=== PATIENT | female | born 1990 | race Caucasian/White ===

== ENCOUNTER 2016-07-04 23:44 | Emergency (ER) | payer BC, OTHER ==
[2016-07-04 23:53] VITALS: BP 146/78; PULSE 87; TEMP 97.8; BMI 29.2
[2016-07-05] MEDS ORDERED: ACETAMINOPHEN 500 MG TABLET (FP) PO ONE (01:05)
--- NOTE | 2016-07-05 01:12 | PDOC ---
History of Present Illness - General Chief Complaint: Chest Pain Stated Complaint: LT SIDE NUMB/CHEST PAIN Time Seen by Provider: 07/05/16 00:12 History Source: Patient Exam Limitations: No Limitations - History of Present Illness Initial Comments: 07/05/16 01:06 Patient is a 26 -year-old female with history of C-sectioncomplaining of chest pain which started 1 hour prior to presentation. States she was sitting down when she started having sharp 7/10 chest pain. She states that for about a week she has been having numbness tor left arm and her left face, but did not start having chest pain on today associated with lightheadedness. There are no alleviating or aggravating factors. Pain with deep breathing, denies N/V/SOB/ diaphoresis. No recent travel, no leg swelling, no OCP. neg FamHX PMD: Dr. Dos Santos PMHX: as above PSOCHX: (-) cig, (-) drug, (-) etoh ALL: NKDA GENERAL/CONSTITUTIONAL: [No fever or chills. No weakness. No weight change.] HEAD, EYES, EARS, NOSE AND THROAT: [No change in vision. No ear pain or discharge. No sore throat.] CARDIOVASCULAR: (+) chest pain or shortness of breath.] RESPIRATORY: [No cough, wheezing, or hemoptysis.] GASTROINTESTINAL: [No nausea, vomiting, diarrhea or constipation. No rectal bleeding.] GENITOURINARY: [No dysuria, frequency, or change in urination.] MUSCULOSKELETAL: [No joint or muscle swelling or pain. No neck or back pain.] SKIN AND BREASTS: [No rash or easy bruising.] NEUROLOGIC: [No headache, vertigo, loss of consciousness, or loss of sensation.] PSYCHIATRIC: [No depression or anxiety.] ENDOCRINE: [No increased thirst. No abnormal weight change.] HEMATOLOGIC/LYMPHATIC: [No anemia, easy bleeding, or history of blood clots.] ALLERGIC/IMMUNOLOGIC: [No hives or skin allergy. No latex allergy.] GENERAL: [The patient is awake, alert, and fully oriented, in no acute distress. ] HEAD: [Normal with no signs of trauma.] EYES: [Pupils equal, round and reactive to light, extraocular movements intact, sclera anicteric, conjunctiva clear.] ENT: [Ears normal, nares patent, oropharynx clear without exudates. Moist mucous membranes.] NECK: [Normal range of motion, supple without lymphadenopathy, JVD, or masses.] LUNGS: [Breath sounds equal, clear to auscultation bilaterally. No wheezes, and no crackles.] HEART: [Regular rate and rhythm, normal S1 and S2 without murmur, rub.] ABDOMEN: [Soft, nontender, normoactive bowel sounds. No guarding, no rebound. No masses.] EXTREMITIES: [Normal range of motion, no edema. No clubbing or cyanosis. No cords, erythema, or tenderness.] NEUROLOGICAL: [Cranial nerves II through XII grossly intact. Normal speech, normal gait, cerebella function intact, ] PSYCH: [Normal mood, normal affect.] SKIN: [Warm, Dry, normal turgor, no rashes or lesions noted.] Past History - Past Medical History Allergies/Adverse Reactions: Allergies Allergy/AdvReac Type Severity Reaction Status Date / Time No Known Allergies Allergy Verified 04/07/16 11:53 Home Medications: Ambulatory Orders Bacitracin Ophthalmic Oint - 1 applic OD Q4H #1 tube 07/05/16 Asthma: No Cancer: No Cardiac Disorders: No Diabetes: No HTN: No Suicide Attempt (Hx): No Seizures: No Thyroid Disease: No - Immunization History Td Vaccination: Yes Immunization Up to Date: Yes - Psycho/Social/Smoking Cessation Hx Anxiety: No Suicidal Ideation: No Smoking Status: No Smoking History: Never smoked Years of Tobacco Use: 0 Have you smoked in the past 12 months: No Number of Cigarettes Smoked Daily: 0 Cigars Per Day: 0 Information on smoking cessation initiated: No Hx Alcohol Use: No Drug/Substance Use Hx: No Substance Use Type: None Hx Substance Use Treatment: No *Physical Exam - Vital Signs Last Vital Signs Temp Pulse Resp BP Pulse Ox 97.8 F 87 14 146/78 100 07/04/16 23:52 07/04/16 23:52 07/04/16 23:52 07/04/16 23:52 07/04/16 23:52 ED Treatment Course - LABORATORY CBC & Chemistry Diagram: 07/05/16 01:05 07/05/16 01:05 - ADDITIONAL ORDERS Additional order review: Laboratory Results 07/05/16 07/05/16 01:05 01:05 D-Dimer 243 H Sodium 137 Potassium 3.9 Chloride 100 Carbon Dioxide 29 Anion Gap 8 BUN 17 D Creatinine 0.7 Random Glucose 83 Calcium 9.6 Creatine Kinase 71 Troponin I < 0.02 Beta HCG, Quant < 1.0 07/05/16 01:05 RBC 5.44 H MCV 67.3 L MCHC 30.6 L RDW 19.0 H MPV 9.5 - RADIOLOGY Radiology Studies Ordered: Category Date Time Status CHEST CTA [CT] Stat CT Scan 07/05/16 03:11 Taken - Medications Given in the ED: ED Medications Discontinued Medications Generic Name Dose Route Start Last Admin Trade Name Freq PRN Reason Stop Dose Admin Acetaminophen 1,000 mg 07/05/16 01:05 07/05/16 02:21 Tylenol - PO 07/05/16 01:06 1,000 mg ONCE ONE Administration Medical Decision Making - Medical Decision Making 07/05/16 01:12 Patient is a 26 -year-old female with history of C-sectioncomplaining of chest pain which started 1 hour prior to presentation.A fam hx neg, no like to be cardiac PERC neg but since pain is pleuritic will get d-dimer. labs are normal except for d-dimer elevate will get CTA chest tylenol 975mg po for pain 07/05/16 06:09 CTA neg for PE, or any acute chest pathology. I discussed the physical exam findings, ancillary test results and final diagnoses with the patient. I answered all of the patient's questions. The patient was satisfied with the care received and felt comfortable with the discharge plan and treatment plan. The Patient agrees to follow up with the primary care physician within 24-72 hours. *DC/Admit/Observation/Transfer Diagnosis at time of Disposition: Chest pain - Discharge Dispostion Disposition: HOME Condition at time of disposition: Stable - Prescriptions Prescriptions: Bacitracin Ophthalmic Oint - 1 applic OD Q4H #1 tube - Patient Instructions Printed Discharge Instructions: DI for Chest Pain Additional Instructions: Your Discharge Instructions: You must call primary care physician within 24 hours to arrange follow-up. Return to the Emergency Department with any new, persistent or worsening symptoms, for fever, chills, SOB, dizziness or any other concerning changes that may occur. - Post Discharge Activity Work/School Note: Back to Work
[2016-07-05 01:59] LABS: MCH 20.6 pg (25.7-33.7); MCHC 30.6 g/dl (32.0-36.0); MEAN CELL VOLUME 67.3 fl (80-96); MEAN PLT VOLUME 9.5 fl (7.5-11.1); PLATELET COUNT 327 K/MM3 (134-434); WHITE BLOOD COUNT 17.3 K/mm3 (4.0-10.0)
[2016-07-05] MEDS ORDERED: ACETAMINOPHEN 325 MG TABLET (FP) ONE (02:18)
[2016-07-05 02:50] LABS: ANION GAP 8 (8-16); CALCIUM 9.6 mg/dL (8.5-10.1); CO2 29 mmol/L (21-32); CREATININE 0.7 mg/dL (0.55-1.02); GLUCOSE,RANDOM 83 mg/dL (74-106)
[2016-07-05 02:53] LABS: TROPONIN I < 0.02 ng/ml (0.00-0.05)
[2016-07-05 04:11] LABS: ANISOCYTOSIS 2+; HYPOCHROMIA 2+; MICROCYTOSIS 1+; PLATELET ESTIMATE ADEQUATE (NORMAL)
--- NOTE | 2016-07-06 12:19 | EKG ---
Test Reason : Blood Pressure : / mmHG Vent. Rate : 086 BPM Atrial Rate : 086 BPM P-R Int : 134 ms QRS Dur : 084 ms QT Int : 380 ms P-R-T Axes : 061 073 054 degrees QTc Int : 454 ms POOR DATA QUALITY, INTERPRETATION MAY BE ADVERSELY AFFECTED NORMAL SINUS RHYTHM NORMAL ECG WHEN COMPARED WITH ECG OF 31-JAN-2016 04:55, NO SIGNIFICANT CHANGE WAS FOUND Confirmed by THOM LAZARO MD ([id number]) on 07/06/2016 12:19:15 PM Referred By: Confirmed By:THOM LAZARO MD
== END 2016-07-05 06:32 | disposition home or self-care (01) ==
LOC: JER 23:44
DX: R07.89 Other chest pain (principal)
CPT/HCPCS: 36415; 71275-TC; 80048; 82550; 84484; 84702; 85027; 85379; 93005; 93010; 99284-25

== ENCOUNTER → 2016-10-10 | Emergency (ER) | payer BC, OTHER ==
[~2016-10-10] MED LIST: CEFTRIAXONE 1 GM in DEXTROSE 5%-WATER - 50 ML IVPB ONE; CEFTRIAXONE 50 ML ONE; KETOROLAC TROMETHAMINE 30 MG/1 ML VIAL IVPUSH ONE; KETOROLAC TROMETHAMINE 30 MG/1 ML VIAL ONE; SODIUM CHLORIDE 1,000 ML IV STA
[2016-10-10 19:25] VITALS: TEMP 98.1; BMI 64.4
--- NOTE | 2016-10-10 19:34 | PDOC ---
History of Present Illness - General History Source: Patient, Family, Old Records Exam Limitations: No Limitations - History of Present Illness Initial Comments: 10/10/16 20:22 The patient is a 26 year old female, with a significant past medical history of positive D-dimers, who presents to the emergency department after being sent from urgent care with shortness of breath, left sided flank pain, left sided chest pain and positive D-dimer onset yesterday. She describes her left flank pain and chest pain as ranging from mild to moderate, without radiation. She states that taking a deep breath and certain movements exacerbates her pain. The patient was in the ED on 06/2016 for chest pain and had a positive D-dimer, a CTA performed that was negative for PE. The patient also had a CTA in 2011 when her D-dimer was also positive, which was negative for PE. She reports that she is also experiencing loss of appetite and a low grade fever (100.1). She states that over the past 7 months she has lost over 25 pounds. The patient denies headache and dizziness. Denies chills, nausea, vomit, diarrhea and constipation. Denies dysuria, frequency, urgency and hematuria. LMP: 2 weeks ago Allergies: None Past surgical history: C-Sections (x2) Social history: Occasional alcohol use. No tobacco or drug use reported <Orlin Ames - Last Filed: 10/10/16 20:22> <Arslan Vance - Last Filed: 10/10/16 23:11> - General Chief Complaint: Shortness of Breath Stated Complaint: Shortness of breath Time Seen by Provider: 10/10/16 19:30 Past History <Orlin Ames - Last Filed: 10/10/16 20:22> - Past Medical History Asthma: No Cancer: No Cardiac Disorders: No Diabetes: No HTN: No Suicide Attempt (Hx): No Seizures: No Thyroid Disease: No - Immunization History Td Vaccination: Yes Immunization Up to Date: Yes - Psycho/Social/Smoking Cessation Hx Anxiety: No Suicidal Ideation: No Smoking Status: No Smoking History: Never smoked Years of Tobacco Use: 0 Have you smoked in the past 12 months: No Number of Cigarettes Smoked Daily: 0 Cigars Per Day: 0 Information on smoking cessation initiated: No Hx Alcohol Use: Yes (Occasionally) Drug/Substance Use Hx: No Substance Use Type: None Hx Substance Use Treatment: No <Arslan Vance - Last Filed: 10/10/16 23:11> - Past Medical History Allergies/Adverse Reactions: Allergies Allergy/AdvReac Type Severity Reaction Status Date / Time No Known Allergies Allergy Verified 10/10/16 19:25 Home Medications: Ambulatory Orders Sulfamethoxazole/Trimethoprim [Bactrim DS -] 1 tab PO BID #20 tablet 10/10/16 Tramadol HCl [Ultram] 50 mg PO BID PRN #10 tablet MDD 2 10/10/16 Review of Systems - Review of Systems Constitutional: Yes: Fever (100.1 yesterday), Unintentional Wgt. Loss (30 lbs over 6 months). No: Chills HEENTM: No: Recent change in vision, Nose Congestion, Throat Swelling Respiratory: Yes: See HPI. No: Cough, Shortness of Breath Cardiac (ROS): Yes: See HPI ABD/GI: No: Diarrhea, Vomiting : No: Dysuria, Frequency, Hematuria Musculoskeletal: Yes: Muscle Pain All Other Systems: Reviewed and Negative <Arslan Vance - Last Filed: 10/10/16 23:11> *Physical Exam - Vital Signs Last Vital Signs Temp Pulse Resp BP Pulse Ox 98.1 F 124 H 24 139/73 99 10/10/16 19:21 10/10/16 19:21 10/10/16 19:21 10/10/16 19:21 10/10/16 19:21 - Physical Exam Comments: 10/10/16 20:23 GENERAL: The patient is awake, alert, and fully oriented, in no acute distress. HEAD: Normal with no signs of trauma. EYES: Pupils equal, round and reactive to light, extraocular movements intact, sclera anicteric, conjunctiva clear with no pallor. ENT: Ears normal, nares patent, oropharynx clear without exudates. Moist mucous membranes. NECK: Normal range of motion, supple without lymphadenopathy, JVD, or masses. LUNGS: Breath sounds equal, clear to auscultation bilaterally. No wheeze/ crackles. HEART: Regular rate and rhythm, normal S1 and S2 without murmur or rub. ABDOMEN: (+) Slightly increase discomfort to palpation to the left flank. Soft/ nondistended. BS wnl. No guarding or rebound. No palpable masses. No hepatosplenomegaly. EXTREMITIES: Normal range of motion, no edema. No clubbing or cyanosis. No cords , erythema, or tenderness. NEUROLOGICAL: Cranial nerves II through XII grossly intact. Normal speech, normal gait. PSYCH: Normal mood, normal affect. SKIN: Warm, Dry, normal turgor, no rashes or lesions noted. <Orlin Ames - Last Filed: 10/10/16 20:22> - Vital Signs Last Vital Signs Temp Pulse Resp BP Pulse Ox 98.1 F 124 H 24 139/73 99 10/10/16 19:21 10/10/16 19:21 10/10/16 19:21 10/10/16 19:21 10/10/16 19:21 <Arslan Vance - Last Filed: 10/10/16 23:11> Heart Score/ECG Review #1 ECG reviewed & interpreted by me at: 19:35 General ECG Interpretation: Sinus Rhythm (tachy at 109), Normal Intervals (IRBBB , QTC 452), No acute ischemic changes Compared to previous ECG there are: No significant change (c/w 07/05/16) <Arslan Vance - Last Filed: 10/10/16 23:11> ED Treatment Course - LABORATORY CBC & Chemistry Diagram: 10/10/16 19:40 10/10/16 19:40 - ADDITIONAL ORDERS Additional order review: Laboratory Results 10/10/16 10/10/16 19:40 19:40 INR 1.21 H PTT (Actin FS) 31.9 Serum , Qual Negative 10/10/16 19:40 RBC 4.90 MCV 68.8 L MCHC 31.5 L RDW 18.1 H MPV 9.1 Neutrophils % 76.6 Lymphocytes % 15.1 Monocytes % 7.5 D Eosinophils % 0.3 Basophils % 0.5 <Orlin Ames - Last Filed: 10/10/16 20:22> - LABORATORY CBC & Chemistry Diagram: 10/10/16 19:40 10/10/16 19:40 <Arslan Vance - Last Filed: 10/10/16 23:11> Medical Decision Making - Medical Decision Making 10/10/16 20:27 A portion of this note was documented by scribe services under my direction. I have reviewed the details of the note, within reason, and agree with the documentation with the following case summary and management plan written by me. 26-year-old female with no significant past medical history presents for left flank/pleuritic discomfort since yesterday with tachycardia and positive d- dimer at urgent care. No PE risk factors, has been ruled out for PE with CAT scan in the past in the setting of positive d-dimer. Denies any symptoms of DVT. No recent infectious complaints, no recent travel. Family history of lupus, also someone with thyroid issues. Reports chronically elevated wbc but has not been able to see a freelance digital project manager. exam as noted, discomfort to L flank but no rash. lungs clear thyroid normal no signs of DVT +d-dimer in setting of acute onset L flank pain that is also pleuritic. noted tachycardia but this has been ongoing for about a year. has had similar presentation in the past and CT ruled out PE. ? whether her weight loss, intermittent tachycardia, ?leukocuytosis suggest an underlying metabolic/ endocrine derangement. overall well appearing without acute respiratory distress , low suspicion for cardiac or urine/renal source. labs including tsh and ldh, ua cta chest reassess 10/10/16 20:43 wbc 15.5 with normal diff (similar to past levels back to 2011), baseline anemia of 10.6, normal chem including trop (nl Na and K). En route to CTA chest. 10/10/16 22:16 CT without PE or pulmonary process. Notable filling defect in upper L renal pole suspicious for pyelonephritis. Ultrasound shows no stone or filling defect. UA with + nitrite. Will treat with ceftriaxone for pyelonephritis, Urine cx sent. Despite wbc is well appearing and afebrile without comorbities, so can d/c on abx with culture f/u and return criteria. 10/10/16 22:48 much improved, received abx and cx sent. tsh and ldh wnl. will d/c on abx, f/u with Dr. Dos Santos and endocrine, understands return criteria. HR improved, now 99. <Arslan Vance - Last Filed: 10/10/16 23:11> *DC/Admit/Observation/Transfer - Attestations Scribe Attestion: 10/10/16 20:22 Documentation prepared by Orlin Ames, acting as director medical affairs for Arslan Vance MD <Orlin Ames - Last Filed: 10/10/16 20:22> <Arslan Vance - Last Filed: 10/10/16 23:11> Diagnosis at time of Disposition: Palpitations, Pleuritic chest pain, Pyelonephritis - Discharge Dispostion Disposition: HOME Condition at time of disposition: Improved - Prescriptions Prescriptions: Sulfamethoxazole/Trimethoprim [Bactrim DS -] 1 tab PO BID #20 tablet Tramadol HCl [Ultram] 50 mg PO BID PRN #10 tablet MDD 2 PRN Reason: Severe Pain - Referrals Referrals: Tobin Dos Santos MD [Primary Care Provider] - Geovanni Contreras MD [Staff Physician] - - Patient Instructions Printed Discharge Instructions: DI for Kidney Infection Additional Instructions: Activity as tolerated. Stay hydrated. Tylenol 1000 mg every 8 hours and/or ibuprofen 600 mg every 8 hours as needed for moderate pain, Tramadol as prescribed as needed for severe pain. A CAT scan of the chest showed no acute abnormalities. A urine test, ultrasound , and the CAT scan show an infection in the kidney. Take Bactrim as prescribed as an antibiotic. You should follow up with Dr. Dos Santos as soon as possible regarding today's emergency department visit. You should also consider seeing an radio operator ground regarding your weight loss. Also consider seeing a freelance digital project manager (Dr. Contreras) regarding your anemia and high white blood cells. Return to the emergency department for any new or concerning symptoms, particularly high fever/chills, difficulty urinating, difficulty breathing, intolerable pain.
[2016-10-10 19:46] LABS: BASOPHIL 0.5 % (0-2.0); EOSINOPHIL 0.3 % (0-4.5); MCH 21.6 pg (25.7-33.7); MCHC 31.5 g/dl (32.0-36.0); MEAN CELL VOLUME 68.8 fl (80-96); MEAN PLT VOLUME 9.1 fl (7.5-11.1); NEUTROPHILS 76.6 % (42.8-82.8); PLATELET COUNT 267 K/MM3 (134-434); RDW 18.1 % (11.6-15.6); WHITE BLOOD COUNT 15.5 K/mm3 (4.0-10.0)
[2016-10-10 19:57] LABS: INR 1.21 (0.82-1.09); PROTHROMBIN TIME (PATIENT) 13.4 SEC (9.98-11.88)
[2016-10-10 19:59] LABS: ACTIVATED PTT 31.9 SECONDS (26.9-34.4)
[2016-10-10 20:06] LABS: ANISOCYTOSIS 1+; HYPOCHROMIA FEW; MICROCYTOSIS 1+; PLATELET ESTIMATE ADEQUATE (NORMAL)
[2016-10-10 20:23] LABS: ALBUMIN 3.6 g/dl (3.4-5.0); ANION GAP 11 (8-16); BILIRUBIN,TOTAL 0.3 mg/dL (0.2-1.0); CALCIUM 8.4 mg/dL (8.5-10.1); CO2 26 mmol/L (21-32); CREATININE 0.7 mg/dL (0.55-1.02); GLUCOSE,RANDOM 95 mg/dL (74-106); SGOT/AST 13 U/L (15-37); SGPT/ALT 22 U/L (12-78); TOT PROT 7.7 g/dl (6.4-8.2)
[2016-10-10 20:26] LABS: ALK PHOS 108 U/L (45-117); TROPONIN I < 0.02 ng/ml (0.00-0.05)
[2016-10-10 21:49] LABS: URINE APPEARANCE CLEAR; URINE BILIRUBIN NEGATIVE (NEGATIVE); URINE COLOR LTYELLOW; URINE GLUCOSE (UA) NEGATIVE (NEGATIVE); URINE KETONE NEGATIVE (NEGATIVE); URINE LEUK ESTERASE NEGATIVE (NEGATIVE); URINE NITRITE POSITIVE (NEGATIVE); URINE PROTEIN NEGATIVE (NEGATIVE); URINE UROBILINOGEN NEGATIVE E.U./dl (0.2-1.0)
[2016-10-10 22:05] LABS: URINE BLOOD 2+ (NEGATIVE)
[2016-10-10 22:08] LABS: URINE BACTERIA RARE /hpf (NONE SEEN); URINE MUCUS RARE; URINE RBC 20 /hpf (0-3); URINE WBC 6 /hpf (3-5)
[2016-10-10 22:32] VITALS: BP 126/76; PULSE 100
[2016-10-10 22:42] LABS: THYROID STIMULATING HORMONE 0.52 uIU/ml (0.358-3.74)
--- NOTE | 2016-10-11 10:53 | EKG ---
Test Reason : Blood Pressure : / mmHG Vent. Rate : 109 BPM Atrial Rate : 109 BPM P-R Int : 126 ms QRS Dur : 096 ms QT Int : 336 ms P-R-T Axes : 079 083 037 degrees QTc Int : 452 ms SINUS TACHYCARDIA OTHERWISE NORMAL ECG WHEN COMPARED WITH ECG OF 05-JUL-2016 01:25, NO SIGNIFICANT CHANGE WAS FOUND Confirmed by MD TARYN, CONOR ([id number]) on 10/11/2016 10:53:21 AM Referred By: Confirmed By:CONOR CENTENO MD
== END | disposition home or self-care (01) ==
LOC: JER 19:13 → SUPCPDRO 19:13
PROC: 3E0337Z Introduction of Electrolytic and Water Balance Substance into Peripheral Vein, Percutaneous Approach (ICD-10-PCS; principal; 2016-10-10)
PROC: 3E03329 Introduction of Other Anti-infective into Peripheral Vein, Percutaneous Approach (ICD-10-PCS; 2016-10-10)
PROC: 3E0333Z Introduction of Anti-inflammatory into Peripheral Vein, Percutaneous Approach (ICD-10-PCS; 2016-10-10)
DX: N12 Tubulo-interstitial nephritis, not specified as acute or chronic (principal); R07.89 Other chest pain; R00.2 Palpitations
CPT/HCPCS: 36415; 71275-TC; 76775-TC; 80053; 81003; 81015; 82550; 83615; 84443; 84484; 84703; 85025; 85610; 85730; 86850; 86900; 86901; 87086; 87186; 93005; 93010; 99283-25

== ENCOUNTER 2016-10-26 18:26 | Emergency (ER) | payer BC, OTHER ==
--- NOTE | 2016-10-26 18:36 | PDOC ---
Rapid Medical Evaluation Chief Complaint: Chest Pain Time Seen by Provider: 10/26/16 18:33 Medical Evaluation: Allergies Allergy/AdvReac Type Severity Reaction Status Date / Time No Known Allergies Allergy Verified 10/10/16 19:25 10/26/16 18:35 I have performed a brief in-person evaluation of this patient. The patient presents with a chief complaint of:chest pain Pertinent physical exam findings:none I have ordered the following:ekg done in triage The patient will proceed to the ED for further evaluation.
[2016-10-26 18:37] VITALS: BP 140/81; PULSE 91; TEMP 97.6; BMI 29.2
[2016-10-26] MEDS ORDERED: KETOROLAC TROMETHAMINE 60 MG/2 ML VIAL IM ONE (20:24)
--- NOTE | 2016-10-26 20:25 | PDOC ---
History of Present Illness - General Chief Complaint: Chest Pain Stated Complaint: CHEST PAIN Time Seen by Provider: 10/26/16 18:33 - History of Present Illness Initial Comments: 10/26/16 20:24 CHIEF COMPLAINT: chest pain HISTORY OF PRESENT ILLNESS: 26 yo F with hx of elevated WBC, positive D-dimers, and elevated HR presents to fast track with chest pain that started today. Patient reports that the pain is reproducible on palpation and worsens when she breaths. Patient was seen 2 weeks prior in this ED for the same; CTA was performed and she was negative for PEs. No recent travel or sick contacts. PAST MEDICAL HISTORY: Denies past medical history FAMILY HISTORY: Denies SOCIAL HISTORY: Denies tobacco, alcohol, illicit drug use. SURGICAL HISTORY: Denies ALLERGIES: No known drug allergies REVIEW OF SYSTEMS General/Constitutional: Denies fever or chills. Denies weakness, weight change. HEENT: Denies change in vision. Denies ear pain or discharge. Denies sore throat. Cardiovascular: Denies chest pain or shortness of breath. Respiratory: Denies cough, wheezing, or hemoptysis. Gastrointestinal: Denies nausea, vomiting, diarrhea or constipation. Denies rectal bleeding. Genitourinary: Denies dysuria, frequency, or change in urination. Musculoskeletal: Denies joint or muscle swelling or pain. Denies neck or back pain. Skin and breasts: Denies rash or easy bruising. Neurologic: Denies headache, vertigo, loss of consciousness, or loss of sensation. PHYSICAL EXAM General Appearance: Well-appearing, appropriately dressed. No apparent distress , no intoxication. HEENT: EOMI, PERRLA, normal ENT inspection, normal voice, TMs normal, pharynx normal. No conjunctival pallor. No photophobia, scleral icterus. Neck: Supple. Trachea midline. No tenderness, rigidity, carotid bruit, stridor , lymphadenopathy, or thyromegaly. Respiratory/Chest: Lungs CTAB. No shortness of breath, respiratory distress, accessory muscle use. No crackles, rales, rhonchi, stridor, wheezing, dullness Cardiovascular: RRR. S1, S2. No JVD, murmur, bradycardia, tachycardia. Vascular Pulses: Dorsalis-Pedis (R): 2+, Dorsalis-Pedis (L): 2+ Gastrointestinal/Abdominal: Normal bowel sounds. Abdomen soft, non-distended. No tenderness or rebound tenderness. No organomegaly, pulsatile mass, guarding , hernia, hepatomegaly, splenomegaly. Lymphatic: No adenopathy, tenderness. Musculoskeletal/Extremities: Chest wall tenderness on palpation. Normal inspection. FROM of all extremities, normal capillary refill. Pelvis Stable. No CVA tenderness. No tenderness to extremities, pedal edema, swelling, erythema or deformity. Integumentary: Appropriate color, dry, warm. No cyanosis, erythema, jaundice or rash Neurologic: statement distribution clerk II-XII intact. Fully oriented, alert. Appropriate mood/affect. Motor strength 5/5. No appreciable EOM palsy, facial droop or sensory deficit. 10/26/16 20:25 Past History - Past Medical History Allergies/Adverse Reactions: Allergies Allergy/AdvReac Type Severity Reaction Status Date / Time No Known Allergies Allergy Verified 10/10/16 19:25 Home Medications: Ambulatory Orders Sulfamethoxazole/Trimethoprim [Bactrim DS -] 1 tab PO BID #20 tablet 10/10/16 Tramadol HCl [Ultram] 50 mg PO BID PRN #10 tablet MDD 2 10/10/16 Diclofenac Sodium [Voltaren] 2 - 3 gm TP TID #1 tube 10/26/16 Asthma: No Cancer: No Cardiac Disorders: No Diabetes: No HTN: No Suicide Attempt (Hx): No Seizures: No Thyroid Disease: No - Immunization History Td Vaccination: Yes Immunization Up to Date: Yes - Psycho/Social/Smoking Cessation Hx Anxiety: No Suicidal Ideation: No Smoking Status: No Smoking History: Never smoked Years of Tobacco Use: 0 Have you smoked in the past 12 months: No Number of Cigarettes Smoked Daily: 0 Cigars Per Day: 0 Information on smoking cessation initiated: No Hx Alcohol Use: No Drug/Substance Use Hx: No Substance Use Type: None Hx Substance Use Treatment: No *Physical Exam - Vital Signs Last Vital Signs Temp Pulse Resp BP Pulse Ox 97.6 F 91 H 18 140/81 100 10/26/16 18:35 10/26/16 18:35 10/26/16 18:35 10/26/16 18:35 10/26/16 18:35 ED Treatment Course - Medications Given in the ED: ED Medications Discontinued Medications Generic Name Dose Route Start Last Admin Trade Name Freq PRN Reason Stop Dose Admin Ketorolac Tromethamine 60 mg 10/26/16 20:24 10/26/16 20:53 Toradol Injection - IM 10/26/16 20:25 60 mg ONCE ONE Administration Medical Decision Making - Medical Decision Making 10/26/16 20:27 26 yo F with hx of elevated WBC, positive D-dimer, and tachycardia presents to fast track with chest pain. -EKG normal -Toradol 60 mg IM Advised patient to see PMD by the end of this week and of signs and symptoms for return to ER. *DC/Admit/Observation/Transfer Diagnosis at time of Disposition: Chest discomfort - Discharge Dispostion Disposition: HOME Condition at time of disposition: Stable Admit: No - Prescriptions Prescriptions: Diclofenac Sodium [Voltaren] 2 - 3 gm TP TID #1 tube - Referrals Referrals: Tobin Dos Santos MD [Primary Care Provider] - - Patient Instructions Printed Discharge Instructions: DI for Chest Pain Additional Instructions: Please use the medication as prescribed. As discussed, you were seen and fully evaluated for your chest pain and positive D-dimers two weeks ago and a repeat CTA is not recommended at this time given increased radiation and that these are all lab values that you have had in the past. You MUST FOLLOW UP with Dr. Dos Santos within the next 2-3 days as discussed for further evaluation of this chest discomfort. If you experience difficulty breathing along with this chest pain, any worsening palpitations, headache, fever, chills, vomiting, or any new or worsening symptoms, please return to the ER.
[2016-10-26] MEDS ORDERED: KETOROLAC TROMETHAMINE 60 MG/2 ML VIAL ONE (20:48)
--- NOTE | 2016-11-01 15:42 | EKG ---
Test Reason : Blood Pressure : / mmHG Vent. Rate : 086 BPM Atrial Rate : 086 BPM P-R Int : 142 ms QRS Dur : 088 ms QT Int : 366 ms P-R-T Axes : 044 081 055 degrees QTc Int : 437 ms NORMAL SINUS RHYTHM WITH SINUS ARRHYTHMIA NORMAL ECG WHEN COMPARED WITH ECG OF 10-OCT-2016 19:35, NO SIGNIFICANT CHANGE WAS FOUND BASELINE ARTIFACT Confirmed by LINNETTE LARA, KERON ([id number]) on 11/01/2016 3:42:18 PM Referred By: FELECIA Confirmed By:KERON ANGLIN MD
== END 2016-10-26 21:29 | disposition home or self-care (01) ==
LOC: JERFT 18:26
PROC: 3E0233Z Introduction of Anti-inflammatory into Muscle, Percutaneous Approach (ICD-10-PCS; principal; 2016-10-26)
DX: R07.89 Other chest pain (principal)
CPT/HCPCS: 93005; 93010; 99281-25

== ENCOUNTER 2017-08-25 11:52 | Emergency (ER) | payer OTHER ==
[2017-08-25 11:57] VITALS: TEMP 98; BMI 29.2
--- NOTE | 2017-08-25 13:07 | PDOC ---
History of Present Illness - General Chief Complaint: Headache Stated Complaint: Migraine Headache Time Seen by Provider: 08/25/17 13:07 History Source: Patient Exam Limitations: No Limitations - History of Present Illness Initial Comments: 08/25/17 16:35 This is a 27-year-old female presents to the emergency room with complaints of a new onset migraine. She states she's been having more headaches recently. She recently started her menses cycle in the last day or so. She's been trying to treat it with some Tylenol however it is not helping. She has not taken any in the last 2 days. She has not taken any Excedrin since Wednesday. Past medical history is PMD is Dr. Dos Santos She does not have a neurologist Past History - Past Medical History Allergies/Adverse Reactions: Allergies Allergy/AdvReac Type Severity Reaction Status Date / Time No Known Allergies Allergy Verified 08/25/17 11:57 Home Medications: Ambulatory Orders NK [No Known Home Medication] 08/25/17 Asthma: No Cancer: No Cardiac Disorders: No COPD: No Diabetes: No HTN: No Seizures: No Thyroid Disease: No Other medical history: MIGRAINES. - Surgical History Abdominal Surgery: Yes - Immunization History Td Vaccination: Yes Immunization Up to Date: Yes - Suicide/Smoking/Psychosocial Hx Smoking Status: No Smoking History: Never smoked Years of Tobacco Use: 0 Have you smoked in the past 12 months: No Number of Cigarettes Smoked Daily: 0 Cigars Per Day: 0 Hx Alcohol Use: No Drug/Substance Use Hx: No Substance Use Type: None Hx Substance Use Treatment: No Review of Systems - Review of Systems Able to Perform ROS?: Yes Comments:: 08/25/17 16:36 General statement: Complaints of a headache patient was sitting up in the room with the lights on although she states that the light is bothering her she was sitting reading her phone Hematology: neg history of bleeding/blood thinners Skin: Neg for lesions, rash, bruising. HEENT: Neg symptoms Respiratory: Neg SOB or difficulty in breathing Cardiac: Neg chest pain GI: Neg pain, n/v : Neg problems on voiding MS: Neg for joint pain/stiffness, no edema Neuro: Neg for LOC, weakness, Endocrine: Neg for excess thirst/hunger, cold/heat intolerance, excess sweating Allergies: Neg for allergies *Physical Exam - Vital Signs Last Vital Signs Temp Pulse Resp BP Pulse Ox 98 F 96 H 18 111/70 99 08/25/17 11:55 08/25/17 11:55 08/25/17 11:55 08/25/17 11:55 08/25/17 11:55 - Physical Exam Comments: 08/25/17 16:37 General Appearance: This well appearing 27-year-old female V/S: hemodynamically stable, afebrile Skin: WNL of pt's skin color, no signs of pallor, mottling, cyanosis Head:symmetrical Eyes: EOM's intact, PERRLA Ears: denies pain Nose: patent Throat: lips, teeth, gums, tongue, buccal mucos pink and moist Lungs: Chest symmetry equal. Cap refill <3 seconds. Lung sounds clear Cardiac: PMI at R 4MCL space, pos S1 and S2, regular rate. Abdomen: Soft, round, nontender : Not observed Muscularskeletal: Gait steady, ambulated in to ER, no edema +PMS Neuro: AAOx3, cognitively intact, speech clear and appropriate. ED Treatment Course - LABORATORY CBC & Chemistry Diagram: 08/25/17 14:00 08/25/17 14:00 Medical Decision Making - Medical Decision Making 08/25/17 16:37 Patient was initially seen and examined. Patient states she's been having a new onset of migraine-type headaches. She tried Tylenol as well as his sedimentation rate in and they did not relieve it so she is now here for further evaluation. Plan, labs, hCG, UA, Reglan, IV fluids, nasal cannula with 2 L, and Toradol. 2 hours the patient had received the treatment course and she states that she feels much better and is able to go home. *DC/Admit/Observation/Transfer Diagnosis at time of Disposition: Migraine - Discharge Dispostion Disposition: HOME Condition at time of disposition: Stable Admit: No - Referrals Referrals: Tobin Dos Santos MD [Primary Care Provider] - Rachid Mcmullen MD [Staff Physician] - - Patient Instructions Printed Discharge Instructions: DI for Migraine Additional Instructions: Discharge instructions 1. Please follow up with your primary physician within the next few days and explain that you have been seen here in the Emergency Room for a migraine These follow up with the neurologist I have given you as a referral for migraine treatments to prevent migraines as well as abort them when they occur. 2. If you experience any worsening of symptoms, nausea, vomiting, worsening headache of your life please return to the ER 3. Rest, avoid any bright lights, take Excedrin as needed for pain 4. Drink plenty of water - Post Discharge Activity
[2017-08-25] MEDS ORDERED: METOCLOPRAMIDE HCL INJECTION 10 MG/2 ML VIAL IVPUSH ONE (13:25)
[2017-08-25] MEDS ORDERED: SODIUM CHLORIDE 1,000 ML IV STA (13:25)
[2017-08-25] MEDS ORDERED: KETOROLAC TROMETHAMINE 30 MG/1 ML VIAL IVPUSH ONE (13:26)
[2017-08-25] MEDS ORDERED: METOCLOPRAMIDE HCL INJECTION 10 MG/2 ML VIAL ONE (13:31)
[2017-08-25] MEDS ORDERED: KETOROLAC TROMETHAMINE 30 MG/1 ML VIAL ONE (13:31)
[2017-08-25 14:04] LABS: BASO % 0.5 % (0-2.0); EOS % 0.4 % (0-4.5); HEMATOCRIT 36.6 % (32.4-45.2); HEMOGLOBIN 11.8 GM/dL (10.7-15.3); LYMPH % 18.6 % (8-40); MCH 23.6 pg (25.7-33.7); MCHC 32.1 g/dl (32.0-36.0); MEAN CELL VOLUME 73.5 fl (80-96); MEAN PLT VOLUME 9.3 fl (7.5-11.1); MONO % 4.5 % (3.8-10.2); PLATELET COUNT 261 K/MM3 (134-434); RBC 4.99 M/mm3 (3.60-5.2); RDW 17.8 % (11.6-15.6); WHITE BLOOD COUNT 10.2 K/mm3 (4.0-10.0)
--- NOTE | 2017-08-25 14:13 | PDOC ---
*Physical Exam - Vital Signs Last Vital Signs Temp Pulse Resp BP Pulse Ox 98 F 96 H 18 111/70 99 08/25/17 11:55 08/25/17 11:55 08/25/17 11:55 08/25/17 11:55 08/25/17 11:55 ED Treatment Course - LABORATORY CBC & Chemistry Diagram: 08/25/17 14:00 08/25/17 14:00 - Medications Given in the ED: ED Medications Discontinued Medications Generic Name Dose Route Start Last Admin Trade Name Stuart PRN Reason Stop Dose Admin Ketorolac Tromethamine 30 mg 08/25/17 13:26 08/25/17 13:43 Toradol Injection - IVPUSH 08/25/17 13:27 30 mg ONCE ONE Administration Metoclopramide HCl 10 mg 08/25/17 13:25 08/25/17 13:43 Reglan Injection - IVPUSH 08/25/17 13:26 10 mg ONCE ONE Administration Medical Decision Making - Medical Decision Making 08/25/17 13:57 Mrs. Ramirez is a 27-year-old female with no significant past medical history who presents emergency department with a complaint of headache. Patient states that her symptoms began on Wednesday morning-4 days ago. She notes frontal pressure. Patient is taking Excedrin with no relief. Patient notes dizziness, photophobia. No nausea or vomiting. No fevers or chills. 08/25/17 14:01 Pt appears uncomfortable RRR CTA No abd tenderness Pt seen by Midlevel Provider under my direct supervision Pt interviewed and examined Ancillary studies reviewed I agree with plan as outlined by Midlevel Provider *DC/Admit/Observation/Transfer Diagnosis at time of Disposition: Migraine - Discharge Dispostion Disposition: HOME Condition at time of disposition: Stable - Referrals Referrals: Tobin Dos Santos MD [Primary Care Provider] - Rachid Mcmullen MD [Staff Physician] - - Patient Instructions Printed Discharge Instructions: DI for Migraine Additional Instructions: Discharge instructions 1. Please follow up with your primary physician within the next few days and explain that you have been seen here in the Emergency Room for a migraine These follow up with the neurologist I have given you as a referral for migraine treatments to prevent migraines as well as abort them when they occur. 2. If you experience any worsening of symptoms, nausea, vomiting, worsening headache of your life please return to the ER 3. Rest, avoid any bright lights, take Excedrin as needed for pain 4. Drink plenty of water - Post Discharge Activity Forms/Work/School Notes: Back to Work
[2017-08-25 14:41] LABS: ALBUMIN 3.8 g/dl (3.4-5.0); ALK PHOS 85 U/L (45-117); ANION GAP 9 (8-16); BILIRUBIN,TOTAL 0.6 mg/dL (0.2-1.0); BLOOD UREA NITROGEN 9 mg/dL (7-18); CALCIUM 9.1 mg/dL (8.5-10.1); CHLORIDE 104 mmol/L (98-107); CO2 28 mmol/L (21-32); CREATININE 0.5 mg/dL (0.55-1.02); GLUCOSE,RANDOM 99 mg/dL (74-106); POTASSIUM 4.1 mmol/L (3.5-5.1); SGOT/AST 10 U/L (15-37); SGPT/ALT 14 U/L (12-78); SODIUM 141 mmol/L (136-145); TOT PROT 7.5 g/dl (6.4-8.2)
[2017-08-25 16:39] LABS: URINE APPEARANCE CLEAR; URINE BILIRUBIN NEGATIVE (<2.0 mg/dL); URINE BLOOD 3+ (NEGATIVE); URINE COLOR LTYELLOW; URINE GLUCOSE (UA) NEGATIVE (NEGATIVE); URINE KETONE NEGATIVE (NEGATIVE); URINE LEUK ESTERASE NEGATIVE (NEGATIVE); URINE NITRITE NEGATIVE (NEGATIVE); URINE PROTEIN NEGATIVE (NEGATIVE); URINE UROBILINOGEN NEGATIVE mg/dL (0.2-1.0)
[2017-08-25 16:52] LABS: EPI CELLS RARE /HPF (FEW); URINE BACTERIA RARE /hpf (NONE SEEN); URINE MUCUS RARE
[2017-08-25 17:02] VITALS: BP 114/60; PULSE 86
== END 2017-08-25 17:02 | disposition home or self-care (01) ==
LOC: JER 11:52
PROC: 3E0333Z Introduction of Anti-inflammatory into Peripheral Vein, Percutaneous Approach (ICD-10-PCS; principal; 2017-08-25)
PROC: 3E033GC Introduction of Other Therapeutic Substance into Peripheral Vein, Percutaneous Approach (ICD-10-PCS; 2017-08-25)
PROC: 3E0337Z Introduction of Electrolytic and Water Balance Substance into Peripheral Vein, Percutaneous Approach (ICD-10-PCS; 2017-08-25)
DX: G43.909 Migraine, unspecified, not intractable, without status migrainosus (principal)
CPT/HCPCS: 36415; 80053; 81003; 81015; 84703; 85025; 99283-25; J7030

== ENCOUNTER 2018-01-23 15:45 | Emergency (ER) | payer OTHER ==
[2018-01-23 15:50] VITALS: BP 122/70; PULSE 107; TEMP 98.4; BMI 28.3
[2018-01-23] MEDS ORDERED: FAMOTIDINE 20 MG/50 ML IVPB 20 MG/50 ML MG IVPB ONE ×2 (17:24→18:01)
[2018-01-23] MEDS ORDERED: MAG HYDROX/AL HYDROX/SIMETH -MYLANTA- ORAL SUSPENSION PO ONE (17:24)
[2018-01-23 17:54] LABS: BASO % 0.6 % (0-2.0); EOS % 0.4 % (0-4.5); HEMATOCRIT 38.3 % (32.4-45.2); MCH 23.4 pg (25.7-33.7); MCHC 31.3 g/dl (32.0-36.0); MEAN CELL VOLUME 74.8 fl (80-96); MEAN PLT VOLUME 9.3 fl (7.5-11.1); PLATELET COUNT 274 K/MM3 (134-434); RBC 5.12 M/mm3 (3.60-5.2); RDW 15.8 % (11.6-15.6); WHITE BLOOD COUNT 12.6 K/mm3 (4.0-10.0)
[2018-01-23] MEDS ORDERED: MAG HYDROX/AL HYDROX/SIMETH 30 ML UNIT-DOSE CUP ONE (18:01)
[2018-01-23 18:18] LABS: ALBUMIN 3.7 g/dl (3.4-5.0); ANION GAP 6 MMOL/L (8-16); BLOOD UREA NITROGEN 11 mg/dL (7-18); CALCIUM 8.9 mg/dL (8.5-10.1); CHLORIDE 106 mmol/L (98-107); CO2 27 mmol/L (21-32); CREATININE 0.6 mg/dL (0.55-1.02); GLUCOSE,RANDOM 77 mg/dL (74-106); LIPASE 147 U/L (73-393); POTASSIUM 3.9 mmol/L (3.5-5.1); SGOT/AST 11 U/L (15-37); SGPT/ALT 22 U/L (12-78); SODIUM 139 mmol/L (136-145)
[2018-01-23 18:20] LABS: ALK PHOS 92 U/L (45-117); BILIRUBIN,TOTAL 0.4 mg/dL (0.2-1.0); TOT PROT 7.7 g/dl (6.4-8.2)
[2018-01-23 18:22] LABS: URINE APPEARANCE CLEAR; URINE BILIRUBIN NEGATIVE (<2.0 mg/dL); URINE COLOR STRAW; URINE GLUCOSE (UA) NEGATIVE (NEGATIVE); URINE KETONE NEGATIVE (NEGATIVE); URINE LEUK ESTERASE NEGATIVE (NEGATIVE); URINE NITRITE NEGATIVE (NEGATIVE); URINE PROTEIN NEGATIVE (NEGATIVE); URINE UROBILINOGEN NEGATIVE mg/dL (0.2-1.0)
[2018-01-23] MEDS ORDERED: ACETAMINOPHEN 500 MG TABLET (FP) PO ONE (18:31)
[2018-01-23] MEDS ORDERED: ACETAMINOPHEN 325 MG TABLET (FP) ONE (19:23)
[2018-01-23] MEDS ORDERED: ACETAMINOPHEN 325 MG TABLET (FP) PO ONE (19:27)
[2018-01-23] MEDS ORDERED: SODIUM CHLORIDE 1,000 ML IV STA (20:25)
[2018-01-23] MEDS ORDERED: MORPHINE SULFATE 2 MG/ML VIAL ONE (21:21)
--- NOTE | 2018-01-23 22:14 | PDOC ---
History of Present Illness - General History Source: Patient Exam Limitations: No Limitations - History of Present Illness Initial Comments: 01/23/18 22:15 The patient is a 27 year old female, with no significant past medical history, who presents to the ED complaining of abdominal pain onset today. She describes her pain as localized in the right upper quadrant, ranging from mild to moderate , without radiation or modifying factors. She denies taking any kind of medication for the pain. She notes that she has long car ride coming up [place] and wants to get checked out prior to going on this trip in case it may be an emergency. The patient denies chest pain, shortness of breath, headache and dizziness. Denies fever, chills, nausea, vomiting, diarrhea or constipation. Denies dysuria , frequency, urgency and hematuria. LMP: 01/02/2018 Allergies: None Past surgical history: Emilie crain (x2) Social History: No alcohol, tobacco or drug use reported <Orlin Ames - Last Filed: 01/23/18 22:15> <Justina Chamberlain - Last Filed: 01/23/18 22:42> - General Chief Complaint: Pain Stated Complaint: PAIN Time Seen by Provider: 01/23/18 16:18 Past History <Orlin Ames - Last Filed: 01/23/18 22:15> - Past Medical History Asthma: No Cancer: No Cardiac Disorders: No COPD: No Diabetes: No HTN: No Seizures: No Thyroid Disease: No - Surgical History Abdominal Surgery: Yes - Immunization History Td Vaccination: Yes Immunization Up to Date: Yes - Suicide/Smoking/Psychosocial Hx Smoking Status: No Smoking History: Never smoked Years of Tobacco Use: 0 Have you smoked in the past 12 months: No Number of Cigarettes Smoked Daily: 0 Cigars Per Day: 0 Hx Alcohol Use: No Drug/Substance Use Hx: No Substance Use Type: None Hx Substance Use Treatment: No <Justina Chamberlain - Last Filed: 01/23/18 22:42> - Past Medical History Allergies/Adverse Reactions: Allergies Allergy/AdvReac Type Severity Reaction Status Date / Time sulfamethoxazole Allergy Verified 01/23/18 19:21 [From Bactrim] trimethoprim [From Bactrim] Allergy Verified 01/23/18 19:21 Home Medications: Ambulatory Orders NK [No Known Home Medication] 08/25/17 Review of Systems - Review of Systems Able to Perform ROS?: Yes Comments:: 01/23/18 22:15 GENERAL/CONSTITUTIONAL: No fever or chills. No weakness. HEAD, EYES, EARS, NOSE AND THROAT: No change in vision. No ear pain or discharge. No sore throat. GASTROINTESTINAL: (+) Abdominal pain. No nausea, vomiting, diarrhea or constipation. GENITOURINARY: No dysuria, frequency, or change in urination. CARDIOVASCULAR: No chest pain or shortness of breath. RESPIRATORY: No cough, wheezing, or hemoptysis. MUSCULOSKELETAL: No joint or muscle swelling or pain. No neck or back pain. SKIN: No rash NEUROLOGIC: No headache, vertigo, loss of consciousness, or change in strength/ sensation. ENDOCRINE: No increased thirst. No abnormal weight change. HEMATOLOGIC/LYMPHATIC: No anemia, easy bleeding, or history of blood clots. ALLERGIC/IMMUNOLOGIC: No hives or skin allergy. <Orlin Ames - Last Filed: 01/23/18 22:15> *Physical Exam - Vital Signs Last Vital Signs Temp Pulse Resp BP Pulse Ox 98.4 F 107 H 20 122/70 100 01/23/18 15:47 01/23/18 15:47 01/23/18 15:47 01/23/18 15:47 01/23/18 15:47 - Physical Exam Comments: 01/23/18 22:16 Constitutional: Awake, alert, oriented. No acute distress. Head: Normocephalic. Atraumatic Eyes: PERRL. EOMI. Conjunctivae are not pale. ENT: Mucous membranes are moist and intact. Posterior pharynx without exudates or erythema. Uvula midline. Neck: Supple. Full ROM. No lymphadenopathy. Cardiovascular: Regular rate. Regular rhythm. S1, S2 regular. Distal pulses are 2+ and symmetric. Pulmonary/Chest: No evidence of respiratory distress. Clear to auscultation bilaterally No wheezing, rales or rhonchi. Abdominal: (+) Mid to lower quadrant tenderness. Soft and non-distended. No rebound, guarding or rigidity. No organomegaly. No palpable masses. Good bowel sounds. Back: No CVA tenderness. Musculoskeletal: No edema. No cyanosis. No clubbing. Full range of motion in all extremities. Nocalf tenderness. Radial/pedal pulses are intact and 2+ bilaterally Skin: Skin is warm and dry. No petechiae. No purpura. Neurological: Alert and oriented to person, place, and time. Cranial nerves II -XII are grossly intact. Normal speech. Strength is grossly symmetric. No sensory deficits. Psychiatric: Good eye contact. Normal interaction, affect and behavior <Orlin Ames - Last Filed: 01/23/18 22:15> - Vital Signs Last Vital Signs Temp Pulse Resp BP Pulse Ox 98.4 F 107 H 20 122/70 100 01/23/18 15:47 01/23/18 15:47 01/23/18 15:47 01/23/18 15:47 01/23/18 15:47 <Justina Chamberlain - Last Filed: 01/23/18 22:42> ED Treatment Course - LABORATORY CBC & Chemistry Diagram: 01/23/18 17:40 01/23/18 17:40 - ADDITIONAL ORDERS Additional order review: Laboratory Results 01/23/18 01/23/18 01/23/18 20:45 18:05 17:40 Sodium 139 Potassium 3.9 Chloride 106 Carbon Dioxide 27 Anion Gap 6 L BUN 11 Creatinine 0.6 Creat Clearance w eGFR > 60 Random Glucose 77 Calcium 8.9 Total Bilirubin 0.4 AST 11 L ALT 22 Alkaline Phosphatase 92 Total Protein 7.7 Albumin 3.7 Lipase 147 Urine Color Straw Urine Appearance Clear Urine pH 7.0 Ur Specific [place] 1.011 Urine Protein Negative Urine Glucose (UA) Negative Urine Ketones Negative Urine Blood Negative Urine Nitrite Negative Urine Bilirubin Negative Urine Urobilinogen Negative Ur Leukocyte Esterase Negative Urine HCG, Qual Negative 01/23/18 17:40 RBC 5.12 MCV 74.8 L MCHC 31.3 L RDW 15.8 H D MPV 9.3 Neutrophils % 75.0 Lymphocytes % 18.0 Monocytes % 6.0 Eosinophils % 0.4 Basophils % 0.6 - Medications Given in the ED: ED Medications Discontinued Medications Generic Name Dose Route Start Last Admin Trade Name Freq PRN Reason Stop Dose Admin Acetaminophen 975 mg 01/23/18 18:31 01/23/18 19:28 Tylenol - PO 01/23/18 18:32 Not Given ONCE ONE Acetaminophen 650 mg 01/23/18 19:27 01/23/18 19:28 Tylenol - PO 01/23/18 19:28 650 mg ONCE ONE Administration Al Hydroxide/Mg Hydroxide 30 ml 01/23/18 17:24 01/23/18 18:13 Mylanta Suspension - PO 01/23/18 17:25 30 ml ONCE ONE Administration Famotidine/Sodium Chloride 20 mg in 50 mls @ 100 mls/hr 01/23/18 17:24 18:14 Pepcid 20 Mg Premixed Ivpb - IVPB 01/23/18 17:53 100 mls/hr ONCE ONE Administration Sodium Chloride 1,000 mls @ 1,000 mls/hr 01/23/18 20:25 01/23/18 21:04 Normal Saline - IV 01/23/18 21:24 1,000 mls/hr ASDIR STA Administration <Orlin Ames - Last Filed: 01/23/18 22:15> - LABORATORY CBC & Chemistry Diagram: 01/23/18 17:40 01/23/18 17:40 - ADDITIONAL ORDERS Additional order review: Laboratory Results 01/23/18 01/23/18 01/23/18 20:45 18:05 17:40 Sodium 139 Potassium 3.9 Chloride 106 Carbon Dioxide 27 Anion Gap 6 L BUN 11 Creatinine 0.6 Creat Clearance w eGFR > 60 Random Glucose 77 Calcium 8.9 Total Bilirubin 0.4 AST 11 L ALT 22 Alkaline Phosphatase 92 Total Protein 7.7 Albumin 3.7 Lipase 147 Urine Color Straw Urine Appearance Clear Urine pH 7.0 Ur Specific [place] 1.011 Urine Protein Negative Urine Glucose (UA) Negative Urine Ketones Negative Urine Blood Negative Urine Nitrite Negative Urine Bilirubin Negative Urine Urobilinogen Negative Ur Leukocyte Esterase Negative Urine HCG, Qual Negative 01/23/18 17:40 RBC 5.12 MCV 74.8 L MCHC 31.3 L RDW 15.8 H D MPV 9.3 Neutrophils % 75.0 Lymphocytes % 18.0 Monocytes % 6.0 Eosinophils % 0.4 Basophils % 0.6 - RADIOLOGY Radiology Studies Ordered: Category Date Time Status ABDOMEN & PELVIS CT WITH CONTR [CT] Stat CT Scan 01/23/18 21:17 Taken ABDOMEN US -LIMITED [US] Stat Ultrasound 01/23/18 17:24 Taken - Medications Given in the ED: ED Medications Discontinued Medications Generic Name Dose Route Start Last Admin Trade Name Freq PRN Reason Stop Dose Admin Acetaminophen 975 mg 01/23/18 18:31 01/23/18 19:28 Tylenol - PO 01/23/18 18:32 Not Given ONCE ONE Acetaminophen 650 mg 01/23/18 19:27 01/23/18 19:28 Tylenol - PO 01/23/18 19:28 650 mg ONCE ONE Administration Al Hydroxide/Mg Hydroxide 30 ml 01/23/18 17:24 01/23/18 18:13 Mylanta Suspension - PO 01/23/18 17:25 30 ml ONCE ONE Administration Famotidine/Sodium Chloride 20 mg in 50 mls @ 100 mls/hr 01/23/18 17:24 18:14 Pepcid 20 Mg Premixed Ivpb - IVPB 01/23/18 17:53 100 mls/hr ONCE ONE Administration Sodium Chloride 1,000 mls @ 1,000 mls/hr 01/23/18 20:25 01/23/18 21:04 Normal Saline - IV 01/23/18 21:24 1,000 mls/hr ASDIR STA Administration <Justina Chamberlain - Last Filed: 01/23/18 22:42> Medical Decision Making - Medical Decision Making 01/23/18 22:33 CAT scan the abdomen and pelvis with contrast. Impression unremarkable CT of the abdomen and pelvis with exception of some early sigmoid diverticulosis without any evidence of diverticulitis. The appendix is normal. Abdominal pain pt has had no vomiting or diarrhea since her arrival,no fever or chills <Justina Chamberlain - Last Filed: 01/23/18 22:42> *DC/Admit/Observation/Transfer - Attestations Scribe Attestion: 01/23/18 22:17 Documentation prepared by Orlin Ames, acting as medical recruiter for Justina Chamberlain MD <Orlin Ames - Last Filed: 01/23/18 22:15> <Justina Chamberlain - Last Filed: 01/23/18 22:42> Diagnosis at time of Disposition: Abdominal pain Qualifiers: Abdominal location: right lower quadrant Qualified Code(s): R10.31 - Right lower quadrant pain - Discharge Dispostion Disposition: HOME Condition at time of disposition: Stable - Patient Instructions Printed Discharge Instructions: DI for Abdominal Pain-Adult Additional Instructions: please follow up with your doctor if you develop any worsening symptoms
== END 2018-01-23 23:06 | disposition home or self-care (01) ==
LOC: JER 15:45
PROC: 3E0337Z Introduction of Electrolytic and Water Balance Substance into Peripheral Vein, Percutaneous Approach (ICD-10-PCS; principal; 2018-01-23)
PROC: 3E033GC Introduction of Other Therapeutic Substance into Peripheral Vein, Percutaneous Approach (ICD-10-PCS; 2018-01-23)
DX: R10.31 Right lower quadrant pain (principal); Z88.2 Allergy status to sulfonamides
CPT/HCPCS: 36415; 74177-TC; 76705-TC; 80053; 81003; 83690; 84703; 85025; 96361; 96365; 99281-25; J7030

== ENCOUNTER 2018-06-17 01:14 | Emergency (ER) | payer OTHER ==
[2018-06-17 01:34] VITALS: TEMP 97.7; BMI 28.3
[2018-06-17] MEDS ORDERED: ONDANSETRON 4 MG/2 ML VIAL IVPUSH ONE (03:07)
[2018-06-17] MEDS ORDERED: MECLIZINE HCL 25 MG TABLET (FP) PO ONE (03:07)
[2018-06-17] MEDS ORDERED: SODIUM CHLORIDE 0.9% 500 ML INFUS.BAG IV ONE (03:08)
--- NOTE | 2018-06-17 03:15 | PDOC ---
History of Present Illness - General Chief Complaint: Nausea Stated Complaint: NAUSEA/DIZZINESS Time Seen by Provider: 06/17/18 02:54 History Source: Patient Exam Limitations: No Limitations - History of Present Illness Initial Comments: 06/17/18 03:09 28YOF with h/o LTCSx2 who p/w one day of nausea without vomiting, lightheadedness, mild headache, and generalized malaise. She tried taking Karlee- [place] without relief. Has never felt ill quite like this before. She denies f/ c, vomiting, diarrhea, constipation (last BM in the morning 06/16/18 was normal) , n/t/w focally, blurred vision, room-spinning dizziness, chest pain, SOB, abdominal pain, or other symptoms. No known sick contacts recently. Did not get a flu vaccination. Past History - Past Medical History Allergies/Adverse Reactions: Allergies Allergy/AdvReac Type Severity Reaction Status Date / Time sulfamethoxazole Allergy Verified 06/17/18 01:31 [From Bactrim] trimethoprim [From Bactrim] Allergy Verified 06/17/18 01:31 Home Medications: Ambulatory Orders NK [No Known Home Medication] 08/25/17 Asthma: No Cancer: No Cardiac Disorders: No COPD: No Diabetes: No HTN: No Seizures: No Thyroid Disease: No - Surgical History Abdominal Surgery: Yes - Immunization History Td Vaccination: Yes Immunization Up to Date: Yes - Suicide/Smoking/Psychosocial Hx Smoking Status: No Smoking History: Never smoked Years of Tobacco Use: 0 Have you smoked in the past 12 months: No Number of Cigarettes Smoked Daily: 0 Cigars Per Day: 0 Information on smoking cessation initiated: No Hx Alcohol Use: No Drug/Substance Use Hx: No Substance Use Type: None Hx Substance Use Treatment: No Review of Systems - Review of Systems Able to Perform ROS?: Yes Comments:: 06/17/18 03:11 GEN: malaise, no fever, chills, generalized weakness, or weight change HEENT: no ear pain, sore throat, vision change, or eye pain CV: lightheadedness, no chest pain, palpitations, syncope, or edema RESP: no cough, wheezing, or SOB GI: nausea, no abdominal pain, vomiting, diarrhea, constipation, or white/black/ bloody stool : no dysuria, hematuria, incontinence, retention, bleeding, or discharge MSK: no neck/back pain, muscle weakness/pain, or joint swelling/pain NEURO: headache, no seizure, vertigo, numbness, tingling, or focal weakness PSYCH: no substance use, no behavior change SKIN: no jaundice, no rash ROS otherwise negative except as noted in HPI *Physical Exam - Vital Signs Last Vital Signs Temp Pulse Resp BP Pulse Ox 97.7 F 80 18 119/77 99 06/17/18 01:31 06/17/18 01:31 06/17/18 01:31 06/17/18 01:31 06/17/18 01:31 - Physical Exam Comments: 06/17/18 03:12 GENERAL: well-appearing, A/Ox4, no distress, answers questions appropriately, significant other at bedside HEENT: PERRLA, EOMI, moist mucous membranes NECK/BACK: no midline ttp, no spinal stepoff or deformity, no hematoma, full ROM , neck supple CARDIOVASCULAR: regular rate/rhythm, normal S1S2, no MGR, strong peripheral pulses, capillary refill <2 seconds, extremities wwp, no edema LUNGS/RESPIRATORY: no respiratory distress, CTAB GI/ABDOMEN: symmetric [id number], normoactive BS, soft, no ttp, no midline pulsatile masses : no CVA tenderness EXTREMITIES: no muscle atrophy, no acute deformity SKIN: warm and dry, no pallor, no jaundice, no rash, no bruising, no skin breakdown, no cuts, no lesions NEUROLOGICAL: GCS 15, CN II-XII grossly intact, 5/5 strength proximally and distally, no facial droop Moderate Sedation - Procedure Monitoring Vital Signs: Procedure Monitoring Vital Signs Temperature 97.7 F 06/17/18 01:31 Pulse Rate 80 06/17/18 01:31 Respiratory Rate 18 06/17/18 01:31 Blood Pressure 119/77 06/17/18 01:31 O2 Sat by Pulse Oximetry (%) 99 06/17/18 01:31 ED Treatment Course - LABORATORY CBC & Chemistry Diagram: 06/17/18 03:30 06/17/18 03:30 Medical Decision Making - Medical Decision Making 06/17/18 03:13 Adult female patient p/w nausea, lightheadedness, mild headache. Initial Vital Signs Temp Pulse Resp BP Pulse Ox 97.7 F 80 18 119/77 99 06/17/18 01:31 06/17/18 01:31 06/17/18 01:31 06/17/18 01:31 06/17/18 01:31 Exam: As noted in Physical Exam section. DDX IBNLT: viral syndrome, influenza, , UTI, walking PNA, migraine, vertigo (central versus peripheral), etc. W/U ordered: Labs as noted below TX ordered: Zofran, Meclizine, Ofirmev, NS EKG: Reviewed; see HEART score/ECG section. Laboratory Tests 06/17/18 06/17/18 06/17/18 03:30 03:30 03:30 WBC 13.4 H RBC 4.85 Hgb 12.3 Hct 37.2 MCV 76.6 L MCH 25.4 L MCHC 33.2 RDW 15.6 Plt Count 274 MPV 9.6 Absolute Neuts (auto) 8.7 H Neutrophils % 65.0 Lymphocytes % 27.9 D Monocytes % 5.1 Eosinophils % 1.5 D Basophils % 0.5 Nucleated RBC % 0 Sodium Potassium Chloride Carbon Dioxide Anion Gap BUN Creatinine Creat Clearance w eGFR Random Glucose Calcium Magnesium Total Bilirubin AST ALT Alkaline Phosphatase Total Protein Albumin Serum , Qual Negative Urine Color Urine Appearance Urine pH Ur Specific [place] Urine Protein Urine Glucose (UA) Urine Ketones Urine Blood Urine Nitrite Urine Bilirubin Urine Urobilinogen Ur Leukocyte Esterase Influenza A (Rapid) Negative Influenza B (Rapid) Negative 06/17/18 06/17/18 03:30 05:50 WBC RBC Hgb Hct MCV MCH MCHC RDW Plt Count MPV Absolute Neuts (auto) Neutrophils % Lymphocytes % Monocytes % Eosinophils % Basophils % Nucleated RBC % Sodium 141 Potassium 4.0 Chloride 104 Carbon Dioxide 29 Anion Gap 7 L BUN 13 Creatinine 0.6 Creat Clearance w eGFR > 60 Random Glucose 79 Calcium 8.6 Magnesium 2.0 Total Bilirubin 0.4 AST 12 L ALT 20 Alkaline Phosphatase 87 Total Protein 7.2 Albumin 3.7 Serum , Qual Urine Color Straw Urine Appearance Clear Urine pH 7.0 Ur Specific [place] 1.008 L Urine Protein Negative Urine Glucose (UA) Negative Urine Ketones Negative Urine Blood Negative Urine Nitrite Negative Urine Bilirubin Negative Urine Urobilinogen Negative Ur Leukocyte Esterase Negative Influenza A (Rapid) Influenza B (Rapid) Reassessment: Patient states feeling much better, no longer lightheaded or nauseated. 06/17/18 06:48 This patient has gotten significant relief of symptoms while in the ED. On last reassessment, symptoms are reasonably controlled, and exam is benign. Workup is not concerning for emergency-level pathology at this time. This patient is appropriate for discharge with close outpatient follow up. They are comfortable with this plan and will follow up with their primary care provider in 1-3 days. Specific return precautions are discussed and they will come back to the ER if necessary. *DC/Admit/Observation/Transfer Diagnosis at time of Disposition: Nausea without vomiting, Lightheadedness - Discharge Dispostion Disposition: HOME Condition at time of disposition: Stable Decision to Admit order: No - Referrals Referrals: Tobin Dos Santos MD [Primary Care Provider] - - Patient Instructions Additional Instructions: You were seen in the ERforlightheadedness and nausea. We did an exam, laboratory work on your blood and urine, and an electrocardiogram, and we did not find any concerning results. We gave you medications here in the department which did help your symptoms. After our assessment, we do not believe you are having a medical emergency at this time, and we believe you are safe to go home. Focus on drinking fluids for the next 24 hours. Please follow up with your regular PCP in 1-3 days. Call their clinic, tell them you were seen in the ER, and tell them you need a follow-up. If you have any new or worsening symptoms (especially worsened or atypical headache, neck pain, persistent vertigo that you cannot control with medications at home, numbness, tingling, new weakness of one or more parts of your body, vision changes, slurred speech, loss of consciousness, or seizures) please come back to the ER at any time (24 hours a day). If you are having severe or life threatening symptoms, or symptoms that make it unsafe to drive or have someone drive you, please call 911. - Post Discharge Activity
[2018-06-17] MEDS ORDERED: ONDANSETRON 4 MG/2 ML VIAL ONE (03:24)
[2018-06-17] MEDS ORDERED: MECLIZINE HCL 25 MG TABLET (FP) ONE (03:24)
--- NOTE | 2018-06-17 03:42 | PDOC ---
Attending Attestation - Resident Resident Name: EldaSabra - ED Attending Attestation I have performed the following: I have examined & evaluated the patient, The case was reviewed & discussed with the resident, I agree w/resident's findings & plan, Exceptions are as noted - HPI HPI: 06/17/18 08:14 28F c/o nausea w/o vomiting a/w lightheadedness, mild almonte, generalized weakness. No other complaints.. - Physicial Exam PE: 06/17/18 08:15 Agree with exam as documented by resident - Medical Decision Making 06/17/18 08:15 consider gastritis, viral syndrome, less likely acs, central warehouse receiver pathology symptomatic tx re-eval pt much improved with symptomatic resolution dc w/ pcp f/u
[2018-06-17] MEDS ORDERED: ACETAMINOPHEN 1000 MG/100 ML VIAL (NON FORMULARY) IVPB ONE (03:44)
[2018-06-17] MEDS ORDERED: ACETAMINOPHEN INJECTION 100 ML IVPB ONE (03:47)
[2018-06-17 03:59] LABS: BASO % 0.5 % (0-2.0); EOS % 1.5 % (0-4.5); HEMATOCRIT 37.2 % (32.4-45.2); HEMOGLOBIN 12.3 GM/dL (10.7-15.3); LYMPH % 27.9 % (8-40); MCH 25.4 pg (25.7-33.7); MCHC 33.2 g/dl (32.0-36.0); MEAN CELL VOLUME 76.6 fl (80-96); MEAN PLT VOLUME 9.6 fl (7.5-11.1); MONO % 5.1 % (3.8-10.2); PLATELET COUNT 274 K/MM3 (134-434); RBC 4.85 M/mm3 (3.60-5.2); RDW 15.6 % (11.6-15.6); WHITE BLOOD COUNT 13.4 K/mm3 (4.0-10.0)
[2018-06-17 04:33] LABS: ALBUMIN 3.7 g/dl (3.4-5.0); ALK PHOS 87 U/L (45-117); ANION GAP 7 MMOL/L (8-16); BILIRUBIN,TOTAL 0.4 mg/dL (0.2-1); BLOOD UREA NITROGEN 13 mg/dL (7-18); CALCIUM 8.6 mg/dL (8.5-10.1); CHLORIDE 104 mmol/L (98-107); CO2 29 mmol/L (21-32); CREATININE 0.6 mg/dL (0.55-1.3); GLUCOSE,RANDOM 79 mg/dL (74-106); SGOT/AST 12 U/L (15-37); SGPT/ALT 20 U/L (13-61); SODIUM 141 mmol/L (136-145); TOT PROT 7.2 g/dl (6.4-8.2)
[2018-06-17 06:39] VITALS: BP 124/68; PULSE 78
[2018-06-17 06:39] LABS: URINE APPEARANCE CLEAR; URINE BILIRUBIN NEGATIVE (<2.0 mg/dL); URINE COLOR STRAW; URINE GLUCOSE (UA) NEGATIVE (NEGATIVE); URINE KETONE NEGATIVE (NEGATIVE); URINE LEUK ESTERASE NEGATIVE (NEGATIVE); URINE NITRITE NEGATIVE (NEGATIVE); URINE PROTEIN NEGATIVE (NEGATIVE); URINE UROBILINOGEN NEGATIVE mg/dL (0.2-1.0)
--- NOTE | 2018-06-17 11:51 | EKG ---
Test Reason : Blood Pressure : / mmHG Vent. Rate : 074 BPM Atrial Rate : 074 BPM P-R Int : 152 ms QRS Dur : 090 ms QT Int : 408 ms P-R-T Axes : 065 080 053 degrees QTc Int : 452 ms NORMAL SINUS RHYTHM NORMAL ECG WHEN COMPARED WITH ECG OF 26-OCT-2016 18:41, NO SIGNIFICANT CHANGE WAS FOUND Confirmed by ROSALINDA LARA, MARIO ([id number]) on 06/17/2018 11:51:22 AM Referred By: Confirmed By:MARIO TELLEZ MD
== END 2018-06-17 06:55 | disposition home or self-care (01) ==
LOC: JER 01:14
PROC: 3E033NZ Introduction of Analgesics, Hypnotics, Sedatives into Peripheral Vein, Percutaneous Approach (ICD-10-PCS; principal; 2018-06-17)
PROC: 3E033GC Introduction of Other Therapeutic Substance into Peripheral Vein, Percutaneous Approach (ICD-10-PCS; 2018-06-17)
DX: R42 Dizziness and giddiness (principal); R11.0 Nausea
CPT/HCPCS: 36415; 80053; 81003; 83735; 84703; 85025; 87086; 87804; 93005; 93010; 96374; 96375; 99282-25; J0131

== ENCOUNTER 2019-02-19 21:45 | Emergency (ER) | payer OTHER ==
[2019-02-19 21:59] VITALS: BP 118/75; PULSE 97; TEMP 98.2; BMI 30.1
--- NOTE | 2019-02-19 22:37 | PDOC ---
History of Present Illness - General Chief Complaint: Injury Stated Complaint: LEFT INDEX FINGER INJURY Time Seen by Provider: 02/19/19 22:30 - History of Present Illness Initial Comments: 02/19/19 22:34 28 y/o F presents for evaluation of L 2nd finger pain after a twisting injury last night. Past History - Past Medical History Allergies/Adverse Reactions: Allergies Allergy/AdvReac Type Severity Reaction Status Date / Time sulfamethoxazole Allergy Verified 06/17/18 01:31 [From Bactrim] trimethoprim [From Bactrim] Allergy Verified 06/17/18 01:31 Home Medications: Ambulatory Orders NK [No Known Home Medication] 08/25/17 Asthma: No Cancer: No Cardiac Disorders: No COPD: No Diabetes: No HTN: No Seizures: No Thyroid Disease: No - Surgical History Abdominal Surgery: Yes - Immunization History Td Vaccination: Yes Immunization Up to Date: Yes - Psycho Social/Smoking Cessation Hx Smoking Status: No Smoking History: Never smoked Years of Tobacco Use: 0 Have you smoked in the past 12 months: No Number of Cigarettes Smoked Daily: 0 Cigars Per Day: 0 Hx Alcohol Use: No Drug/Substance Use Hx: No Substance Use Type: None Hx Substance Use Treatment: No Review of Systems - Review of Systems Musculoskeletal: Yes: Joint Pain *Physical Exam - Vital Signs Last Vital Signs Temp Pulse Resp BP Pulse Ox 98.2 F 97 H 19 118/75 100 02/19/19 21:57 02/19/19 21:57 02/19/19 21:57 02/19/19 21:57 02/19/19 21:57 - Physical Exam Comments: 02/19/19 22:35 L2nd finger is swollen about the area of the proximal phalanx, there is tenderness there as well. FDS and FDP work independently; There is no appreciable malrotatiopn or gross sensory motor deficits NVID. ROM limited. ED Treatment Course - RADIOLOGY Radiology Studies Ordered: Category Date Time Status FINGER(S) LEFT [RAD] Stat Radiology 02/19/19 22:33 Ordered Medical Decision Making - Medical Decision Making 02/19/19 22:42 There appears to be a small fracture at the base of the middle phalanx best seen on lateral. Abdoul tape and f/u with hand. Discharge - Discharge Information Problems reviewed: Yes Clinical Impression/Diagnosis: Finger fracture, left Condition: Stable Disposition: HOME - Admission No - Follow up/Referral Referrals: Lobito Jon MD [Staff Physician] - - Patient Discharge Instructions Additional Instructions: Tylenol and Motrin as directed for pain. Return to the emergency room should symptoms worsen. Follow up with Dr Jon in 1-2 days for further evaluation and treatment options. And keep the fingers abdoul taped the way you were shown in the emergency room until evaluated by hand surgery. You may change the tape daily for hygiene. - Post Discharge Activity
== END 2019-02-19 23:34 | disposition home or self-care (01) ==
LOC: JERFT 21:45
DX: S62.621A Displaced fracture of middle phalanx of left index finger, initial encounter for closed fracture (principal); X50.1XXA Overexertion from prolonged static or awkward postures, initial encounter; Y93.89 Activity, other specified; Y92.89 Other specified places as the place of occurrence of the external cause; Y99.8 Other external cause status; Z88.2 Allergy status to sulfonamides
CPT/HCPCS: 73140-TC-LT-FY; 99281-25

== ENCOUNTER 2019-04-09 05:21 | Emergency (ER) | payer OTHER ==
[2019-04-09 05:42] VITALS: TEMP 97.7; BMI 30.9
[2019-04-09] MEDS ORDERED: ONDANSETRON 4 MG/2 ML VIAL IVPUSH ONE (05:47)
[2019-04-09] MEDS ORDERED: FAMOTIDINE 20 MG/50 ML IVPB 20 MG/50 ML MG IVPB ONE ×2 (05:47→06:02)
[2019-04-09] MEDS ORDERED: LIDOCAINE VISCOUS 2% ORAL/TOP 20 ML UNIT-DOSE CUP MM ONE (05:47)
[2019-04-09] MEDS ORDERED: MAG HYDROX/AL HYDROX/SIMETH -MYLANTA- ORAL SUSPENSION PO ONE (05:47)
--- NOTE | 2019-04-09 05:55 | PDOC ---
Attending Attestation - Resident Resident Name: QuinonesMorteza - ED Attending Attestation I have performed the following: I have examined & evaluated the patient, The case was reviewed & discussed with the resident, I agree w/resident's findings & plan - HPI HPI: 04/09/19 06:41 see resident hpi - Physicial Exam PE: 04/09/19 06:41 agree with resident exam - Medical Decision Making 04/09/19 06:41 28-year-old female with 1 episode of vomiting and chest burning Plan for antacids, antiemetics and IV fluids Labs pending Plan for reevaluation, if able to tolerate p.o. and improved will likely DC home On reexam at 6:40 AM post meds patient has no abdominal tenderness or pain, chest burning has improved
[2019-04-09] MEDS ORDERED: LIDOCAINE VISCOUS 2% ORAL/TOP 20 ML UNIT-DOSE CUP ONE (06:01)
[2019-04-09] MEDS ORDERED: MAG HYDROX/AL HYDROX/SIMETH 30 ML UNIT-DOSE CUP ONE (06:02)
[2019-04-09] MEDS ORDERED: ONDANSETRON 4 MG/2 ML VIAL ONE (06:02)
--- NOTE | 2019-04-09 06:09 | PDOC ---
History of Present Illness - General Chief Complaint: Nausea/Vomiting Stated Complaint: HEARTBURN Time Seen by Provider: 04/09/19 05:35 - History of Present Illness Initial Comments: Ms. Ramirez is a 28 y/o female with PMH significant for GERD presenting today with heartburn symptoms. Reports that she has a hx of heartburn, especially after eating spicy food, but that tonight's symptoms are worse. Reports that the symptoms started at 1am. Reports nausea and vomiting x1. Reports that she feels something is stuck in her throat, and feels a burning sensation in her chest. Denies chest pain, shortness of breath, abdominal pain, urinary symptoms, changes in stool. Denies fever/chills. SurgHx: x2 Past History - Past Medical History Allergies/Adverse Reactions: Allergies Allergy/AdvReac Type Severity Reaction Status Date / Time sulfamethoxazole Allergy Verified 04/09/19 05:35 [From Bactrim] trimethoprim [From Bactrim] Allergy Verified 04/09/19 05:35 Home Medications: Ambulatory Orders NK [No Known Home Medication] 08/25/17 Asthma: No Cancer: No Cardiac Disorders: No COPD: No Diabetes: No HTN: No Seizures: No Thyroid Disease: No - Surgical History Abdominal Surgery: Yes - Immunization History Td Vaccination: Yes Immunization Up to Date: Yes - Psycho Social/Smoking Cessation Hx Smoking Status: No Smoking History: Never smoked Years of Tobacco Use: 0 Have you smoked in the past 12 months: No Number of Cigarettes Smoked Daily: 0 Cigars Per Day: 0 Hx Alcohol Use: No Drug/Substance Use Hx: No Substance Use Type: None Hx Substance Use Treatment: No Review of Systems - Review of Systems Comments:: GENERAL/CONSTITUTIONAL: No fever or chills. No weakness._ HEAD, EYES, EARS, NOSE AND THROAT: No change in vision. No change in hearing. No sore throat._ CARDIOVASCULAR: No chest pain or shortness of breath_ RESPIRATORY: Denies cough, hemoptysis_ CHEST: Reports burning sensation in her chest. Reports fullness when swallowing. GASTROINTESTINAL: Reports nausea and vomiting. No diarrhea or constipation. Denies abdominal pain. GENITOURINARY: No dysuria, frequency, or change in urination._ MUSCULOSKELETAL: No joint or muscle swelling or pain. No neck or back pain._ SKIN: No rash_ NEUROLOGIC: No headache, vertigo, loss of consciousness, or change in strength/ sensation._ ENDOCRINE: No increased thirst. No abnormal weight change_ HEMATOLOGIC/LYMPHATIC: No anemia, easy bleeding, or history of blood clots._ ALLERGIC/IMMUNOLOGIC: No hives or skin allergy._ *Physical Exam - Vital Signs Last Vital Signs Temp Pulse Resp BP Pulse Ox 97.7 F 92 H 18 121/79 100 04/09/19 05:27 04/09/19 05:27 04/09/19 05:27 04/09/19 05:27 04/09/19 05:27 - Physical Exam Comments: GENERAL: Awake, alert, and oriented to person/place/time, in no acute distress_ HEAD: No signs of trauma, normocephalic, atraumatic _ EYES: PERRLA, EOMI, sclera anicteric, conjunctiva clear_ ENT: Hearing grossly normal, nares patent, oropharynx clear without exudates. No uvular deviation. Moist mucosa_ NECK: Normal ROM, supple, no lymphadenopathy, JVD, or masses_ LUNGS: No distress, speaks in full sentences, clear to auscultation bilaterally _ HEART: Regular rate and rhythm, normal S1 and S2, no murmurs appreciated, peripheral pulses normal and equal bilaterally._ ABDOMEN: Soft, nontender, normoactive bowel sounds. No guarding, no rebound. No masses_ EXTREMITIES: Normal inspection, Normal range of motion, no edema. No clubbing or cyanosis_ NEUROLOGICAL: Cranial nerves II through XII grossly intact. Normal speech, normal gait, no focal sensorimotor deficits _ SKIN: Warm, Dry, normal turgor, no rashes or lesions noted_ ED Treatment Course - LABORATORY CBC & Chemistry Diagram: 04/09/19 06:15 04/09/19 06:15 Medical Decision Making - Medical Decision Making 04/09/19 06:20 28F with hx of GERD presenting with burning sensation in chest and fullness on swallowing. Associated with nausea and vomiting x1. -cbc, cmp, lipase, serum preg -pepcid, maalox, viscous lidocaine, zofran 04/09/19 0700 Pt signed out to Dr. Johnson. Discharge - Discharge Information Problems reviewed: Yes Clinical Impression/Diagnosis: Chronic GERD Disposition: HOME - Follow up/Referral Referrals: Chumaceiro,Tobin, MD [Primary Care Provider] - - Patient Discharge Instructions Additional Instructions: Please make a follow up appointment in the next week with your primary care physician to address your GERD symptoms. Please continue taking tums as needed for your reflux. If you experience any new, worsening, or concerning symptoms, including severe nausea/vomiting, chest pain, shortness of breath, abdominal pain, or any other concerns, please return to the emergency department. - Post Discharge Activity Work/Back to School Note: Back to Work
[2019-04-09 06:25] LABS: BASO % 0.6 % (0-2.0); EOS % 0.7 % (0-4.5); HEMATOCRIT 36.9 % (32.4-45.2); LYMPH % 17.8 % (8-40); MCH 24.3 pg (25.7-33.7); MCHC 32.5 g/dl (32.0-36.0); MEAN CELL VOLUME 74.8 fl (80-96); MEAN PLT VOLUME 9.4 fl (7.5-11.1); MONO % 5.7 % (3.8-10.2); NEUT % 75.2 % (42.8-82.8); PLATELET COUNT 247 K/MM3 (134-434); RBC 4.93 M/mm3 (3.60-5.2); RDW 15.4 % (11.6-15.6); WHITE BLOOD COUNT 13.5 K/mm3 (4.0-10.0)
[2019-04-09 07:03] LABS: ALBUMIN 3.7 g/dl (3.4-5.0); BILIRUBIN,TOTAL 0.4 mg/dL (0.2-1); BLOOD UREA NITROGEN 12.4 mg/dL (7-18); CALCIUM 8.9 mg/dL (8.5-10.1); CREATININE 0.5 mg/dL (0.55-1.3); POTASSIUM 3.8 mmol/L (3.5-5.1); TOT PROT 7.2 g/dl (6.4-8.2)
[2019-04-09 08:01] LABS: URINE APPEARANCE CLEAR; URINE BILIRUBIN NEGATIVE (NEGATIVE); URINE COLOR YELLOW; URINE GLUCOSE (UA) NEGATIVE (NEGATIVE); URINE KETONE NEGATIVE (NEGATIVE); URINE LEUK ESTERASE NEGATIVE (NEGATIVE); URINE NITRITE NEGATIVE (NEGATIVE); URINE PROTEIN NEGATIVE (NEGATIVE); URINE UROBILINOGEN 0.2 mg/dL (0.2-1.0)
--- NOTE | 2019-04-09 08:38 | PDOC ---
*Physical Exam - Vital Signs Last Vital Signs Temp Pulse Resp BP Pulse Ox 97.7 F 92 H 18 121/79 100 04/09/19 05:27 04/09/19 05:27 04/09/19 05:27 04/09/19 05:27 04/09/19 05:27 - Physical Exam General Appearance: Yes: Nourished, Appropriately Dressed, Obese. No: Apparent Distress HEENT: positive: EOMI, IDRIS, Normal Voice, Symmetrical. negative: Scleral Icterus (R), Scleral Icterus (L), Muffled/Hoarse voice, Pharyngeal Erythema, Tonsillar Exudate, Tonsillar Erythema Neck: positive: Normal Thyroid, Supple. negative: Tender, Lymphadenopathy (R), Lymphadenopathy (L) Respiratory/Chest: positive: Lungs Clear, Normal Breath Sounds. negative: Chest Tender, Respiratory Distress, Accessory Muscle Use, Crackles, Rales, Rhonchi, Stridor, Wheezing Cardiovascular: positive: Regular Rhythm, Regular Rate Gastrointestinal/Abdominal: positive: Normal Bowel Sounds, Flat, Soft. negative : Tender Musculoskeletal: positive: Normal Inspection. negative: CVA Tenderness Extremity: positive: Normal Capillary Refill, Normal Inspection, Normal Range of Motion. negative: Tender, Pedal Edema, Swelling Integumentary: positive: Normal Color, Dry, Warm Neurologic: positive: Fully Oriented, Alert, Normal Mood/Affect, Normal Response ED Treatment Course - LABORATORY CBC & Chemistry Diagram: 04/09/19 06:15 04/09/19 06:15 - ADDITIONAL ORDERS Additional order review: Laboratory Results 04/09/19 04/09/19 04/09/19 06:51 06:51 06:15 Sodium 137 Potassium 3.8 Chloride 108 H Carbon Dioxide 24 Anion Gap 5 L BUN 12.4 Creatinine 0.5 L Est GFR (CKD-EPI)AfAm 153.73 Est GFR (CKD-EPI)NonAf 132.64 Random Glucose 84 Calcium 8.9 Total Bilirubin 0.4 AST 16 ALT 22 Alkaline Phosphatase 95 Total Protein 7.2 Albumin 3.7 Lipase 139 Urine Color Yellow Urine Appearance Clear Urine pH 6.0 Ur Specific [place] 1.010 Urine Protein Negative Urine Glucose (UA) Negative Urine Ketones Negative Urine Blood Negative Urine Nitrite Negative Urine Bilirubin Negative Urine Urobilinogen 0.2 Ur Leukocyte Esterase Negative Urine HCG, Qual Negative 04/09/19 06:15 RBC 4.93 MCV 74.8 L MCHC 32.5 RDW 15.4 MPV 9.4 Neutrophils % 75.2 Lymphocytes % 17.8 D Monocytes % 5.7 Eosinophils % 0.7 Basophils % 0.6 - Medications Given in the ED: ED Medications Discontinued Medications Generic Name Dose Route Start Last Admin Trade Name Stuart PRN Reason Stop Dose Admin Al Hydroxide/Mg Hydroxide 30 ml 04/09/19 05:47 04/09/19 06:18 Mylanta Suspension - PO 04/09/19 05:48 30 ml ONCE ONE Administration Famotidine/Sodium Chloride 20 mg in 50 mls @ 100 mls/hr 04/09/19 05:47 06:18 Pepcid 20 Mg Premixed Ivpb - IVPB 04/09/19 06:16 100 mls/hr ONCE ONE Administration Lidocaine HCl 20 ml 04/09/19 05:47 04/09/19 06:18 Xylocaine 2% Viscous Oral - MM 04/09/19 05:48 20 ml ONCE ONE Administration Ondansetron HCl 4 mg 04/09/19 05:47 04/09/19 06:18 Zofran Injection IVPUSH 04/09/19 05:48 4 mg ONCE ONE Administration Medical Decision Making - Medical Decision Making 04/09/19 07:10 Signed out to me by Dr. Quinones. Presents with acute N/V after eating some bad lasagna yesterday. No other sick contacts. Feels better after getting GI cocktail. Pending UA results. Urine negative. Stable to be discharged home once UA returns. 04/09/19 08:36 UA negative for UTI. Patient can be discharged home safely with PMD follow-up for further evaluation of GERD. Discharge - Discharge Information Problems reviewed: Yes Clinical Impression/Diagnosis: Chronic GERD Disposition: HOME - Follow up/Referral Referrals: Tobin Dos Santos MD [Primary Care Provider] - - Patient Discharge Instructions Additional Instructions: Please make a follow up appointment in the next week with your primary care physician to address your GERD symptoms. Please continue taking tums as needed for your reflux. If you experience any new, worsening, or concerning symptoms, including severe nausea/vomiting, chest pain, shortness of breath, abdominal pain, or any other concerns, please return to the emergency department. - Post Discharge Activity Work/Back to School Note: Back to Work
[2019-04-09 10:14] VITALS: BP 130/65; PULSE 88
== END 2019-04-09 10:14 | disposition home or self-care (01) ==
LOC: JER 05:21
PROC: 3E033GC Introduction of Other Therapeutic Substance into Peripheral Vein, Percutaneous Approach (ICD-10-PCS; principal; 2019-04-09)
PROC: 3E033GC Introduction of Other Therapeutic Substance into Peripheral Vein, Percutaneous Approach (ICD-10-PCS; 2019-04-09)
DX: K21.9 Gastro-esophageal reflux disease without esophagitis (principal); Z88.2 Allergy status to sulfonamides
CPT/HCPCS: 36415; 80053; 81003; 83690; 84703; 85025; 96365; 96375; 99283-25